=== PATIENT | male | born 1945 | race Caucasian/White ===

== ENCOUNTER 2016-10-01 16:37 | Emergency (ER) | payer OTHER ==
[~2016-10-01] VITALS: Ht 180.3 cm; Wt 96.8 kg
[2016-10-01 17:57] LABS: COLOR LT. YELLOW ((YELLOW)); SPECIFIC GRAVITY 1.015 (1.000-1.030)
[2016-10-01 17:58] LABS: BILIRUBIN NEGATIVE; GLUCOSE (STRIP) NEGATIVE; KETONES TRACE; LEUKOCYTES SMALL; NITRITE NEGATIVE; PROTEIN (STRIP) TRACE; UROBILINOGEN 0.2 MG/DL (0.2-1.0)
[2016-10-01 17:59] LABS: ADD MIUA? YES; BLOOD LARGE
[2016-10-01 19:53] LABS: BACTERIA NONE SEEN /HPF; EPITHELIAL CELLS RARE /HPF; MUCUS TRACE /LPF; UCUL ADDED? NO; WHITE BLOOD CELLS 0-5 /HPF (0-5)
[2016-10-01] MEDS ORDERED: CIPRO500 MG PO (20:02)
[2016-10-01 20:10] VITALS: BP 160/87
== END 2016-10-01 20:25 | disposition home or self-care (01) ==
LOC: EME 16:37
PROC: 0T9B70Z Drainage of Bladder with Drainage Device, Via Natural or Artificial Opening (ICD-10-PCS; principal; 2016-10-01)
DX: N39.0 Urinary tract infection, site not specified (principal); E11.9 Type 2 diabetes mellitus without complications; I10 Essential (primary) hypertension
CPT/HCPCS: 81003; 99281; 99283

== ENCOUNTER → 2017-01-06 | Outpatient (CLI) | payer OTHER ==
[~2017-01-06] MED LIST: CIPRO500 MG PO; FLOMAX0.4 MG PO; GLIPIZIDE5 MG PO; KEFLEX500 MG PO; METFORMIN HCL850 MG PO; PROSCAR5 MG PO; TOPROL XL100 MG PO; ZESTORETIC 20-1 EAC1 PO; ZOCOR40 MG PO
== END | disposition home or self-care (01) ==
LOC: CDC 14:56
DX: Z01.810 Encounter for preprocedural cardiovascular examination (principal)
CPT/HCPCS: 93000

== ENCOUNTER 2017-01-10 05:19 | Day surgery (SDC) | payer OTHER ==
[~2017-01-10] VITALS: Ht 180.3 cm; Wt 95.7 kg
[2017-01-10 05:47] VITALS: BP 168/74
[2017-01-10 06:25] LABS: POINT-OF-CARE METER ID UU14174212
[2017-01-10 09:44] LABS: POINT-OF-CARE METER ID UU13113675
[2017-01-10 11:55] VITALS: BP 146/67
[2017-01-10 15:12] VITALS: BP 161/77
[2017-01-10 20:30] VITALS: BP 128/72
[2017-01-10 23:36] VITALS: BP 141/66
[2017-01-11 03:41] VITALS: BP 138/60
[2017-01-11 07:00] VITALS: BP 122/71
== END 2017-01-11 12:05 | disposition home or self-care (01) ==
LOC: SDC → ENRESERV 09:34 → 2SOUTH 11:30 → 2EAST 11:37 → SDC 14:41 → 2EAST 01-11 12:05
PROVIDERS: Urology
PROC: 0V508ZZ Destruction of Prostate, Via Natural or Artificial Opening Endoscopic (ICD-10-PCS; principal; 2017-01-10)
DX: N40.1 Benign prostatic hyperplasia with lower urinary tract symptoms (principal); N13.8 Other obstructive and reflux uropathy; I10 Essential (primary) hypertension; E11.9 Type 2 diabetes mellitus without complications; Z79.84 Long term (current) use of oral hypoglycemic drugs; N31.2 Flaccid neuropathic bladder, not elsewhere classified; E78.5 Hyperlipidemia, unspecified; I51.9 Heart disease, unspecified; Z87.891 Personal history of nicotine dependence; Z82.49 Family history of ischemic heart disease and other diseases of the circulatory system; Z83.3 Family history of diabetes mellitus
CPT/HCPCS: 82948; 88305; G0378; J0690; J2250

== ENCOUNTER 2017-02-13 16:22 | Emergency (ER) | payer OTHER ==
[~2017-02-13] VITALS: Ht 177.8 cm; Wt 94.6 kg
[2017-02-13 17:05] LABS: HEMATOCRIT 36.6 % (38.0-50.0); HEMOGLOBIN 12.3 G/DL (12.5-16.6); MCH 34.6 PG (29.0-34.0); MCHC 33.6 G/DL (30.0-36.0); MCV 103.1 FL (86-99); PLATELET COUNT 232 K/uL (156-360); RBC DIS.WIDTH-CV 13.8 % (11.8-14.6); RBC DIS.WIDTH-SD 52.8 % (39-53); RED BLOOD COUNT 3.55 M/uL (4.00-5.50); WHITE BLOOD COUNT 9.4 K/uL (4.1-10.2)
[2017-02-13 17:23] LABS: CHLORIDE 101 mEq/L (99-109); POTASSIUM 5.3 mEq/L (3.7-5.4); SODIUM 135 mEq/L (136-147)
[2017-02-13 17:25] LABS: GLUCOSE 291 mg/dL (70-99)
[2017-02-13 17:29] LABS: CREATININE 1.7 mg/dL (0.6-1.3); GFR ESTIMATE (CALCULATED) 42 mL/min/ (58.99-99999); UREA NITROGEN (BUN) 25 mg/dL (9-23)
[2017-02-13 19:22] LABS: APPEARANCE BLOODY ((CLEAR)); COLOR RED ((YELLOW)); GLUCOSE (STRIP) TRACE; LEUKOCYTES NEGATIVE; NITRITE NEGATIVE; PROTEIN (STRIP) 2000
[2017-02-13 19:23] LABS: BILIRUBIN SMALL; BLOOD LARGE; KETONES NEGATIVE; UROBILINOGEN 0.2 MG/DL (0.2-1.0)
[2017-02-13 19:25] LABS: RED BLOOD CELLS TNTC /HPF (0-5); UCUL ADDED? YES
[2017-02-13] MEDS ORDERED: KEFLEX500 MG PO (19:46)
[2017-02-13 20:31] VITALS: BP 145/78
== END 2017-02-13 20:37 | disposition home or self-care (01) ==
LOC: EME 16:22
DX: R31.0 Gross hematuria (principal); N40.0 Benign prostatic hyperplasia without lower urinary tract symptoms; I10 Essential (primary) hypertension; E11.9 Type 2 diabetes mellitus without complications; Z98.890 Other specified postprocedural states; Z79.84 Long term (current) use of oral hypoglycemic drugs; Z87.891 Personal history of nicotine dependence
CPT/HCPCS: 80048; 81003; 85027; 87086; 99281; 99285

== ENCOUNTER 2017-02-17 15:14 | Emergency (ER) | payer OTHER ==
[~2017-02-17] VITALS: Ht 177.8 cm; Wt 91.8 kg
[2017-02-17 16:56] VITALS: BP 135/69
== END 2017-02-17 16:56 | disposition home or self-care (01) ==
LOC: EME 15:14
DX: T83.091A Other mechanical complication of indwelling urethral catheter, initial encounter (principal); R31.9 Hematuria, unspecified; R33.9 Retention of urine, unspecified; R30.0 Dysuria; Z98.890 Other specified postprocedural states; I10 Essential (primary) hypertension; E11.9 Type 2 diabetes mellitus without complications; Z79.84 Long term (current) use of oral hypoglycemic drugs; Z87.891 Personal history of nicotine dependence
CPT/HCPCS: 81003; 99281; 99284